=== PATIENT | female | born 1970 | race African-American/Black ===

== ENCOUNTER 2017-04-08 19:41 | Emergency (ER) | payer MEDICARE, MEDICAID ==
[~2017-04-08] VITALS: Ht 175.3 cm; Wt 74.8 kg
[~2017-04-08 19:41] MED LIST: ATIVAN1 MG ORAL; ATRIPLA1 TAB ORAL; ATRIPLA1 TAB PO; AUGMENTIN 875-1 EAC1 ORAL; BACTROBAN 2% OI15 GM TOPIC; COMPLERA TABLE1 EACH ORAL; DOXYCYCLINE MO100 MG ORAL; EPIZICOM PO; EPZICOM1 TAB ORAL; ISENTRESS400 MG ORAL; NORCO 5-325 TA1 EACH ORAL; PERCOCET 5-3251 EACH ORAL; TRIZIVIR ORAL; VALCYTE450 MG PO; [UNRECOGNIZED DRUG - OTHER]
[2017-04-08 20:20] VITALS: BP 121/87
[2017-04-08] MEDS ORDERED: Methocarbamol 750mg tab ORAL ONE (20:30)
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
[2017-04-08] MEDS ORDERED: ROBAXIN-750750 MG PO (21:44)
[2017-04-08 21:45] VITALS: BP 121/87
== END 2017-04-08 21:45 | disposition home or self-care (01) ==
LOC: EMR 20:30
DX: M25.512 Pain in left shoulder (principal); M25.511 Pain in right shoulder; J45.909 Unspecified asthma, uncomplicated; Z88.6 Allergy status to analgesic agent; V43.62XA Car passenger injured in collision with other type car in traffic accident, initial encounter; Y92.410 Unspecified street and highway as the place of occurrence of the external cause
CPT/HCPCS: 99283

== ENCOUNTER 2017-05-28 18:56 | Emergency (ER) | payer MEDICARE, MEDICAID ==
[~2017-05-28] VITALS: Ht 165.1 cm; Wt 74.4 kg
[~2017-05-28 18:56] MED LIST changes: +ROBAXIN-750750 MG PO
[2017-05-28 19:15] VITALS: BP 117/90
[2017-05-28] MEDS ORDERED: BENADRYL25 M3 PO (19:25)
[2017-05-28] MEDS ORDERED: HYDROCORTISONE30 G2 TP (19:25)
[2017-05-28] MEDS ORDERED: Dexamethasone 4mg/ml vial IM ONE (19:30)
--- NOTE | 2017-05-28 19:34 | Emergency Room Report ---
History of Present Illness General Chief Complaint: Skin Rash/Abscess Source: Patient Present Illness HPI 47-year-old female presenting with rash to face for 1 day Rash is limited to skin and does not involve mucosal surfaces. ? severe itchiness, no pain. Patient states that she used a new makeup brand and after that proceeded to have itchy rash to her face. Denies fever or chills, throat swelling, sob. No n/v/d. Allergies: Coded Allergies: IBUPROFEN (Verified Allergy, Mild, 11/06/11) ACETAMINOPHEN (Verified Allergy, Unknown, 04/08/17) Patient History Past Medical History: see triage record Past Surgical History: none Pertinent Family History: none Last Menstrual Period: a week ago Reviewed Nursing Documentation: PMH: Agreed; PSxH: Agreed Nursing Documentation-PMH Hx Asthma: Yes Hx Seizures: Yes Review of Systems All Other Systems: negative except mentioned in HPI Physical Exam Vital Signs Date Time Temp Pulse Resp B/P (MAP) Pulse Ox O2 Delivery O2 Flow Rate FiO2 05/28/17 19:00 98.4 101 18 120/89 96 Room Air 98.4 Sp02 EP Interpretation: reviewed, normal General Appearance: normal inspection, well appearing, no apparent distress, alert, GCS 15, non-toxic Head: normocephalic, atraumatic Eyes: bilateral eye normal inspection, bilateral eye PERRL, bilateral eye EOMI ENT: other - Face with erythematous raised rash, small rashes about 2 x 2 centimeters, multiple on face, blanching, nontender Neck: normal inspection, full range of motion, supple Respiratory: normal inspection, lungs clear, normal breath sounds, no respiratory distress, no wheezing, speaking full sentences, chest symmetrical Cardiovascular #1: normal inspection, regular rate, rhythm, normal capillary refill Cardiovascular #2: 2+ radial (R), 2+ radial (L) Gastrointestinal: normal inspection, non tender, soft, non-distended, no guarding Musculoskeletal: normal inspection, back normal, normal range of motion Neurologic: normal inspection, alert, oriented x3, responsive, motor strength/ tone normal, sensory intact, normal gait, speech normal Psychiatric: normal inspection, judgement/insight normal, memory normal Skin: warm/dry, well hydrated, normal turgor Medical Decision Making Diagnostic Impression: Primary Impression: Allergic dermatitis ER Course 47-year-old female p/w rash on to face DDX: Allergic reaction vs. eczema vs. contact dermatitis Plan: Benadryl Decadron ER course: Patient has remained stable in ED Disposition: Patient will be discharged to home. Patient given prescription of Benadryl, hydrocortisone cream. Strict return precautions discussed with patient such as fever, chills, rapid spread of rash, chest pain, sob, throat swelling, n/v/d. Patient is to follow up with their PMD within 5 days. Patient verbalized understanding and agrees with plan. Please note that this Emergency Department Report was dictated using [employer] handler supervisor technology software, occasionally this can lead to erroneous entry secondary to interpretation by the dictation equipment Last Vital Signs Date Time Temp Pulse Resp B/P (MAP) Pulse Ox O2 Delivery O2 Flow Rate FiO2 05/28/17 19:15 98.0 72 20 117/90 100 Room Air 98.0 Disposition: HOME, SELF-CARE Condition: Improved Scripts Hydrocortisone (Hydrocortisone Cream 2.5%) Y Cream.appl 1 APPLIC TP BID, #1 TUBE Prov: Anatoly Shearer M.D. 05/28/17 Diphenhydramine HCl (Benadryl) 25 Mg Capsule 25 MG PO Q6H, #30 CAP Prov: Anatoly Shearer M.D. 05/28/17 Patient Instructions: Allergies, Exkg-pm-Kehg, Rash, [id number]-Bpxj Anatoly Shearer M.D. May 28, 2017 19:34
[2017-05-28 19:42] VITALS: BP 120/86
== END 2017-05-28 19:45 | disposition home or self-care (01) ==
LOC: EMR 19:30
DX: L23.2 Allergic contact dermatitis due to cosmetics (principal); Z88.6 Allergy status to analgesic agent; J45.909 Unspecified asthma, uncomplicated
CPT/HCPCS: 96372; 99284; J1100

== ENCOUNTER 2017-07-07 02:22 | Emergency (ER) | payer MEDICARE, MEDICAID ==
[~2017-07-07] VITALS: Ht 165.1 cm; Wt 76.7 kg
[~2017-07-07 02:22] MED LIST changes: +BENADRYL25 M3 PO; +HYDROCORTISONE30 G2 TP
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
[2017-07-07] MEDS ORDERED: MEDROL4 M1 PO (03:13)
[2017-07-07 03:15] VITALS: BP 130/83
== END 2017-07-07 03:17 | disposition home or self-care (01) ==
LOC: EMR 02:42
DX: L24.5 Irritant contact dermatitis due to other chemical products (principal)
CPT/HCPCS: 99282

== ENCOUNTER 2017-10-04 03:18 | Emergency (ER) | payer MEDICARE, MEDICAID ==
[~2017-10-04] VITALS: Ht 165.1 cm; Wt 69.4 kg
[~2017-10-04 03:18] MED LIST changes: +MEDROL4 M1 PO
--- NOTE | 2017-10-04 03:35 | Emergency Room Report ---
History of Present Illness General Chief Complaint: Skin Rash/Abscess Source: Patient Present Illness HPI 47yo F p/w "welts" that appeared on face this evening, suddenly, pruritic, without warning, no obvious triggers such as cosmetic products or exposures to new foods. She denies oral/genital involvement, and reports it's only on the skin of her face, along her hairline and areas on her nose. Allergies: Coded Allergies: IBUPROFEN (Verified Allergy, Mild, 11/06/11) ACETAMINOPHEN (Verified Allergy, Unknown, 04/08/17) Patient History Past Medical History: see triage record Reviewed Nursing Documentation: PMH: Agreed; PSxH: Agreed Nursing Documentation-PMH Hx Asthma: Yes Hx Seizures: Yes Review of Systems All Other Systems: negative except mentioned in HPI Physical Exam Sp02 EP Interpretation: reviewed, normal General Appearance: no apparent distress, alert, non-toxic Head: normocephalic Eyes: bilateral eye normal inspection, bilateral eye PERRL, bilateral eye EOMI ENT: normal ENT inspection, hearing grossly normal, normal pharynx, no angioedema, normal voice, moist mucus membranes Neck: normal inspection, full range of motion, supple, supple/symm/no masses Respiratory: chest non-tender, lungs clear, normal breath sounds, chest symmetrical, palpation of chest normal Cardiovascular #1: normal peripheral pulses, regular rate, rhythm Cardiovascular #2: 2+ radial (R), 2+ radial (L) Gastrointestinal: normal inspection, non tender, soft, no mass, no guarding, no rebound Rectal: deferred Genitourinary: normal inspection, no CVA tenderness Musculoskeletal: back normal, gait/station normal, normal range of motion, non- tender, no calf tenderness Neurologic: alert, responsive, biomathematician III-XII nml as tested, motor strength/tone normal, sensory intact, speech normal Psychiatric: judgement/insight normal, memory normal, mood/affect normal Skin: normal color, no rash, warm/dry, normal turgor, other - patient with foundation on face but denies use of cosmetics; possible cystic acneic lesions along scalp and nose are raised and <1cm multiple ~7-8 Lymphatic: no adenopathy Medical Decision Making Diagnostic Impression: Primary Impression: Allergic dermatitis Additional Impression: Cystic acne ER Course Will dc with bactriesdras, f/u with primary graphic production artist Dr. Bailey in [place] ; I think patient is suffering from cystic acne, no evidence to suggest allergic reaction. Disposition: HOME, SELF-CARE Condition: Stable ADEEL SEVILLA M.D Oct 04, 2017 03:35
[2017-10-04] MEDS ORDERED: MEDROL4 M1 PO (03:38)
[2017-10-04] MEDS ORDERED: BACTRIM DS TAB1 EAC1 ORAL (03:38)
[2017-10-04 03:47] VITALS: BP 121/91
[2017-10-04 03:52] VITALS: BP 121/91
== END 2017-10-04 03:55 | disposition home or self-care (01) ==
LOC: EMR 03:25
DX: L23.9 Allergic contact dermatitis, unspecified cause (principal); L70.0 Acne vulgaris; J45.909 Unspecified asthma, uncomplicated; Z88.6 Allergy status to analgesic agent
CPT/HCPCS: 99283; J7512

== ENCOUNTER 2017-10-14 20:35 | Emergency (ER) | payer MEDICARE, MEDICAID ==
[~2017-10-14 20:35] MED LIST changes: +BACTRIM DS TAB1 EAC1 ORAL
--- NOTE | 2017-10-14 21:25 | Emergency Room Report ---
History of Present Illness General Chief Complaint: To Be Triaged Present Illness HPI Patient checked in for rash. This seemed to be a chronic problem based on the please visit. She was called multiple times but did not respond. So patient left after being triaged. Allergies: Coded Allergies: IBUPROFEN (Verified Allergy, Mild, 11/06/11) ACETAMINOPHEN (Verified Allergy, Unknown, 04/08/17) Nursing Documentation-PMH Hx Asthma: Yes Hx Seizures: Yes Medical Decision Making Disposition: LEFT W/OUT BEING SEEN Condition: Stable BEVERLY ABEBE M.D. Oct 14, 2017 21:25
== END 2017-10-14 22:00 | disposition left against medical advice (07) ==
LOC: EMR 21:45
DX: Z53.21 Procedure and treatment not carried out due to patient leaving prior to being seen by health care provider (principal); R21 Rash and other nonspecific skin eruption

== ENCOUNTER 2017-10-21 11:57 | Emergency (ER) | payer MEDICARE, MEDICAID ==
[~2017-10-21] VITALS: Ht 165.1 cm; Wt 68.9 kg
[2017-10-21 12:23] VITALS: BP 136/91
[2017-10-21] MEDS ORDERED: HYDROCORTISONE-30 GM TOPIC (12:35)
[2017-10-21] MEDS ORDERED: HYDROXYZINE PA100 MG ORAL (12:35)
--- NOTE | 2017-10-21 12:36 | Emergency Room Report ---
History of Present Illness General Chief Complaint: Skin Rash/Abscess Source: Patient Present Illness HPI 47-year-old female patient presents ER complaining of bumps on her face for the past several months. Reports previously been seen in this ER and by a type caster. Reports been treated both times however medication is reports and she still has a rash on her face. Reports has not followed up with type caster. reports bumps or pruritic, denies burning pain. Denies fever, chest pain, shortness of breath. Denies drinking, drugs or alcohol. Denies new changes to diet or new soaps or shampoos. Denies contacts with similar symptoms. States has been using multiple medications. denies dysuria, hematuria , lesions on genitals. patient's partner in ER with her, states he does not have any similar symptoms. Allergies: Coded Allergies: IBUPROFEN (Verified Allergy, Mild, 11/06/11) ACETAMINOPHEN (Verified Allergy, Unknown, 04/08/17) Uncoded Allergies: FISH (Allergy, Unknown, 10/21/17) Pt gets hives Patient History Past Medical History: see triage record Reviewed Nursing Documentation: PMH: Agreed; PSxH: Agreed Nursing Documentation-PMH Past Medical History: No History, Except For Hx Asthma: Yes Hx Seizures: Yes Review of Systems All Other Systems: negative except mentioned in HPI Physical Exam Vital Signs Date Time Temp Pulse Resp B/P (MAP) Pulse Ox O2 Delivery O2 Flow Rate FiO2 10/21/17 12:07 98.3 103 20 136/91 98 Room Air 98.2 Sp02 EP Interpretation: reviewed, normal General Appearance: well appearing, no apparent distress, alert, GCS 15, non- toxic Head: normocephalic, atraumatic Eyes: bilateral eye normal inspection, bilateral eye PERRL ENT: hearing grossly normal, normal pharynx, no angioedema, normal voice, uvula midline, moist mucus membranes Neck: full range of motion Respiratory: lungs clear, normal breath sounds, no rhonchi, no respiratory distress, no accessory muscle use, no wheezing, speaking full sentences Cardiovascular #1: regular rate, rhythm, no edema Musculoskeletal: back normal, digits/nails normal, gait/station normal, normal range of motion, non-tender Neurologic: alert, oriented x3, responsive, motor strength/tone normal, sensory intact Psychiatric: mood/affect normal Skin: other - neck and right side of face near mouth and chin: skin color palpable nodules, no erythema or edema, multiple erosions with excoriations, no induration or fluctuance, no TTP, no active bleeding, no blisters or vesicles Medical Decision Making PA Attestation Dr. Chavez is my supervising Physician whom patient management has been discussed with. Diagnostic Impression: Primary Impression: Rash and other nonspecific skin eruption ER Course Pt. presents to the ED c/o rash. Ddx considered but are not limited to atopic dermatitis, scabies, shingles, hives, urticaria, angiodema, allergic reaction, cystic acne, folliculitis. Vital signs: are WNL, pt. is afebrile Ordered medication. ER COURSE no erythema, no vesicles, no burning pain, patient states itchiness leading to pain, excoriations noted, no active draining or weeping lesions, patient afebrile, low suspicion for shingles. previous charts reviewed.patient seen previously in the ER for similar symptoms multiple times. Has seen type caster. Has tried multiple medications. Instructed patient she needs to return to the type caster discuss further management and treatment. Chronic issue that requires specialist care. Patient reports understanding and agreement. impression of patient consistent with possible cystic acne versus allergic dermatitis, noted on neck and right side of chin and cheek near mouth Followup with dermatology. Provided with contact information for type caster. Keep taking topical medications as previously instructed by type caster. DISCHARGE: -Rx given for hydroxyzine for itching. informed patient will not cause drowsiness like Benadryl. -Rx given for Hydrocortisone. Do not apply to face or skin creases. Keep skin well hydrated with lotions. At this time pt. is stable for d/c to home. Patient resting comfortably, in no acute distress, nontoxic appearing. Will provide printed patient care instructions, and any necessary prescriptions. Care plan and follow up instructions have been discussed with the patient prior to discharge. Patient provided with list of healthcare clinics to establish primary care physician. Patient instructed to follow-up with primary care provider in 3 - 5 days. Patient questions asked and answered. ER precautions given. Patient instructed to return to ER immediately for any new or worsening of symptoms including but not limited to increasing SOB, persistent fever. - Please note that this Emergency Department Report was dictated using [employer] information technician technology software, occasionally this can lead to erroneous entry secondary to interpretation by the dictation equipment. Last Vital Signs Date Time Temp Pulse Resp B/P (MAP) Pulse Ox O2 Delivery O2 Flow Rate FiO2 10/21/17 12:23 98.2 103 20 136/91 98 Room Air 98.2 Disposition: HOME, SELF-CARE Condition: Stable Scripts Hydroxyzine Pamoate* (HYDROXYZINE PAMOATE*) 100 Mg Capsule 100 MG ORAL Q6H, #20 TAB 0 Refills Prov: Hernan Green 10/21/17 Hydrocortisone/Aloe Vera 1%* (HYDROCORTISONE-ALOE 1% CREAM*) Y Cr 1 APPLIC TOPIC Q6H PRN for Itching, #30 GM Prov: Hernan Green 10/21/17 Patient Instructions: Acne, Uvvs-ix-Medp, Folliculitis Additional Instructions: Followup with primary care provider in 3 -5 days. Request referral to dermatology. Do not scratch or itch. Apply cool compresses to affected area. Take medications as directed. Do not apply medication to face or skin creases. SE Benadryl drowsiness, do not take prior to drinking, driving, operating heavy machinery. Patient questions asked and answered. ER precautions given, patient instructed to return to ER immediately for any new or worsening of symptoms. [facility] [place] [facility] Hernan Green Oct 21, 2017 12:36
[2017-10-21 12:40] VITALS: BP 136/91
== END 2017-10-21 12:41 | disposition home or self-care (01) ==
LOC: EMR 12:25
DX: J45.909 Unspecified asthma, uncomplicated (principal)
CPT/HCPCS: 99282

== ENCOUNTER 2017-10-23 01:28 | Emergency (ER) | payer MEDICARE, MEDICAID ==
[~2017-10-23] VITALS: Ht 165.1 cm; Wt 68.9 kg
[~2017-10-23 01:28] MED LIST changes: +HYDROCORTISONE-30 GM TOPIC; +HYDROXYZINE PA100 MG ORAL
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
[2017-10-23 02:05] VITALS: BP 110/78
== END 2017-10-23 02:07 | disposition home or self-care (01) ==
LOC: EMR 01:55
DX: M25.561 Pain in right knee (principal); F11.20 Opioid dependence, uncomplicated; Z76.5 Malingerer [conscious simulation]; Z88.6 Allergy status to analgesic agent; Z91.013 Allergy to seafood
CPT/HCPCS: 99283

== ENCOUNTER 2019-02-20 17:51 | Emergency (ER) | payer MEDICARE, MEDICAID ==
[~2019-02-20] VITALS: Ht 165.1 cm; Wt 69.9 kg
--- NOTE | 2019-02-20 18:12 | NUR ---
Note jensen in EDM - 02/20/19 at 1817 by JHERMANRafita ED Nurse Note: Pt walked into ED w/ c/o allergic reaction to unknown allergen for past 3 days. Pt has non-pitting edema under semaj eyes, hives on upper chest and back, cough, and tightness in the throat. Pt a&ox4, 100% on RA, pain on bilateral eyes 09/29. Pt set up on monitor.
[2019-02-20] MEDS ORDERED: PREDNISONE50 MG ORAL (18:15)
[2019-02-20] MEDS ORDERED: Dexamethasone 4mg/ml vial IM ONE (18:15)
--- NOTE | 2019-02-20 18:16 | Emergency Room Report ---
History of Present Illness General Chief Complaint: Allergic Reaction Source: Patient Present Illness HPI 49-year-old female presents with hives, started prior to arrival when she woke up, patient states she took clindamycin, she thinks she may have an allergic reaction her eyes are puffy, no shortness of breath no abdominal pain no nausea no vomiting, patient denies any shortness of breath, she has itchiness on her skin, aggravated by clindamycin alleviated by steroids, severity is mild, patient presents for evaluation Allergies: Coded Allergies: IBUPROFEN (Verified Allergy, Mild, 11/06/11) ACETAMINOPHEN (Verified Allergy, Unknown, 04/08/17) Uncoded Allergies: FISH (Allergy, Unknown, 10/21/17) Pt gets hives Patient History Past Medical History: see triage record Last Menstrual Period: 01/2019 Reviewed Nursing Documentation: PMH: Agreed; PSxH: Agreed Nursing Documentation-PMH Hx Asthma: Yes Hx Seizures: Yes Review of Systems All Other Systems: negative except mentioned in HPI Physical Exam Vital Signs Date Time Temp Pulse Resp B/P (MAP) Pulse Ox O2 Delivery O2 Flow Rate FiO2 02/20/19 17:58 97.3 100 16 121/84 (96) 96 Room Air Sp02 EP Interpretation: reviewed, normal General Appearance: well appearing, no apparent distress, alert Head: normocephalic, atraumatic Eyes: bilateral eye PERRL, bilateral eye EOMI ENT: uvula midline, moist mucus membranes Neck: supple, thyroid normal, supple/symm/no masses Respiratory: lungs clear, no respiratory distress, no retraction, no accessory muscle use Cardiovascular #1: normal peripheral pulses, regular rate, rhythm, no edema, no gallop, no murmur Gastrointestinal: non tender, soft, no guarding, no rebound Musculoskeletal: normal inspection Neurologic: alert, oriented x3 Psychiatric: mood/affect normal Skin: warm/dry, other - Diffuse hives Medical Decision Making Diagnostic Impression: Primary Impression: Allergic reaction Qualified Codes: T78.40XA - Allergy, unspecified, initial encounter ER Course 49-year-old female presents with diffuse hives, patient states she is allergic to Benadryl and can't take Benadryl, counseled patient to stop taking clindamycin, will give a shot of Decadron and will start her on a prednisone burst, will also provide EpiPen reevaluation at 6:15 PM, patient stated she never had tightness in the throat it is a contradiction to the nurses notes, she states she feels fine Disposition home with return precautions Last Vital Signs Date Time Temp Pulse Resp B/P (MAP) Pulse Ox O2 Delivery O2 Flow Rate FiO2 02/20/19 17:58 97.3 100 16 121/84 (96) 96 Room Air Disposition: HOME, SELF-CARE Condition: Stable Scripts Epinephrine (Epipen 2-Vladislav) 0.3 Mg/0.3 Ml Auto.injct 0.3 MG IM ONCE PRN for anaphylaxis, #1 EA Prov: Donnie Carney MD 02/20/19 Prednisone* (PREDNISONE*) 50 Mg Tablet 50 MG ORAL DAILY, #4 TAB 0 Refills Prov: Donnie Carney MD 02/20/19 Referrals: [facility] Patient Instructions: Allergies, Drug Allergy Additional Instructions: The patient was provided with discharge instructions, notified to follow-up with a primary care doctor and or specialist in the next 24-48 hours, and to return to the ED if they have worsening of their symptoms. Please note that this report is being documented using DRAGON technology. This can lead to erroneous entry secondary to incorrect interpretation by the dictating instrument. Donnie Carney MD Feb 20, 2019 18:16
--- NOTE | 2019-02-20 18:17 | NUR ---
ED Nurse Note: Pt walked into ED w/ c/o allergic reaction to unknown allergen for past 3 days. Pt has non-pitting edema under semaj eyes, hives on upper chest and back, cough. Pt a&ox4, 100% on RA, pain on bilateral eyes 8/10. Pt set up on monitor.
[2019-02-20 18:25] VITALS: BP 120/83
[2019-02-20] MEDS ORDERED: EPIPEN 2-P0.3 MG/0.3 IM (18:53)
--- NOTE | 2019-02-20 18:59 | NUR ---
ED Nurse Note: NS 500mL from each bag infused. MD Carney states ok to D/C now.
--- NOTE | 2019-02-20 19:00 | NUR ---
ER DISCHARGE NOTE: Patient is cleared to be discharged per ERMD, pt is aox4, on room air, with stable vital signs. pt was given dc and prescription instructions, pt was able to verbalize understanding, pt id band and iv site removed without complications. pt is able to ambulate with steady gait. pt took all belongings.
[2019-02-22] MEDS ORDERED: BIKTARVY 50-201 EACH PO (07:17)
[2019-02-22] MEDS ORDERED: VISTARIL25 M1 PO (07:33)
[2019-02-22] MEDS ORDERED: HYDROCORTISONE28 G2 TP (07:33)
[2019-02-22] MEDS ORDERED: ACETAMINOPHEN-1 EAC1 ORAL (07:33)
== END 2019-02-20 19:05 | disposition home or self-care (01) ==
LOC: EMR 18:50
DX: T78.40XA Allergy, unspecified, initial encounter (principal); X58.XXXA Exposure to other specified factors, initial encounter; Y92.9 Unspecified place or not applicable; Z88.6 Allergy status to analgesic agent; Z91.013 Allergy to seafood; G40.909 Epilepsy, unspecified, not intractable, without status epilepticus
CPT/HCPCS: 96360; 96372; 99284; J1100; J7030